=== PATIENT | male | born 1955 | race Caucasian/White ===

== ENCOUNTER 2019-11-13 02:38 | Observation (INO) | payer MEDICARE, SELFPAY ==
[2019-11-13] VITALS (19 sets, daily range): BP systolic 103–156; BP diastolic 48–69; PULSE 67–112; RESP 18–27; TEMP 36.5–38.3; O2SAT 90–99
--- NOTE | ~2019-11-13 | XR_ITS ---
EXAMINATION: XR chest 2V 11/13/2019 03:33 INDICATION: Shortness of breath PROCEDURE: 2 view chest COMPARISON: Comparison to multiple prior studies sequentially, with oldest reviewed study dated 05/2017. FINDINGS: The lungs are clear. The cardiomediastinal silhouette is within normal limits. There are no pleural effusions. There is no pneumothorax suspected. IMPRESSION: 1: NO ACUTE CARDIOPULMONARY DISEASE. Reviewed, dictated and finalized at location A. FINISHER
--- NOTE | 2019-11-13 02:40 | ED.ABDPAIN ---
HPI - Abdominal Pain General Chief Complaint: Abdominal Pain Stated Complaint: n/v malaise Time Seen by Provider: 11/13/19 02:40 Source: patient Mode of arrival: EMS Limitations: no limitations History of Present Illness HPI narrative: The pt is a 64 y/o male who presents to the ED, via EMS from [facility], with c/o nausea and vomiting that began tonight. Per EMS, the nurses called EMS because the pt was vomiting and just wasn't himself . The pt is normally A&O x1 due to a PMHx of a CVA. The pt is DNR. Per EMS personnel, O2 was administered en route to the ED. A complete HPI was limited due to the pt's clinical condition. MD elicited complaint: other (nausea and vomiting) Onset (ago): hour(s) (tonight) Associated symptoms: other (none) Related Data Home Medications Medication Instructions Recorded Confirmed amlodipine 5 mg tablet 10 mg PO DAILY 09/01/19 10/12/19 baclofen 10 mg tablet 10 mg PO DAILY 09/01/19 10/12/19 gabapentin 300 mg capsule 300 mg PO DAILY 09/01/19 10/12/19 lisinopril 40 mg PO DAILY 09/01/19 10/12/19 sertraline 100 mg tablet 100 mg PO DAILY 09/01/19 10/12/19 tamsulosin 0.4 mg capsule 0.4 mg PO DAILY 09/01/19 10/12/19 triamterene 37.5 1 tablet PO QAM 09/01/19 10/12/19 mg-hydrochlorothiazide 25 mg tablet Allergies Allergy/AdvReac Type Severity Reaction Status Date / Time No Known Allergies Allergy Unverified 11/13/19 04:56 Review of Systems Review of Systems: All systems reviewed & are unremarkable except as noted in HPI and below Gastrointestinal: Gastrointestinal: Reports nausea and Reports vomiting [facility] Past Medical History Medical History BPH (benign prostatic hyperplasia) Chronic venous stasis dermatitis Depression Dysarthria Essential hypertension Hemiparesis of right dominant side as late effect of cerebral infarction Left MCA stroke in 1999 Peripheral neuropathy Peripheral vascular disease Subdural hematoma February 2018 Surgical History Surgical History Femoral artery stenosis, right Status post right from femoral stent Family History Family History Other Unknown family medical history Social History Social History Social History: The patient is and lives alone. He has smoked a pack per day for 45 years. He had denied alcohol use in the past but multiple small bottles of wine were found at his house. Code status: Full code per EMR; his son Frank is his durable power of energy attorney. Primary care physician: Dr. Eugenio Olivo Smoking packs per day: 1 Smoking cigarettes per day: 20.0 Years smoked: 45 Smoking pack-years: 45.00 Smoking status: Current every day smoker Tobacco type: cigarettes Second hand tobacco smoke exposure: Yes Alcohol intake: current Substance use: unknown Substance use type: unknown Additional occupation/education comments: [employer] Gender identity (if verbalized by the patient): Male Spiritual care concerns: No Agree to blood products: Yes Exam Const: General: ill appearing and other (elderly) HENMT: Mouth: Yes lip normal and Yes moist mucous membranes Eyes: Conjunctivae: conjunctivae normal Pupils: Equal, round and reactive pupils present Resp: Effort & Inspection: normal respiratory effort Auscultation: rhonchi Cardio: Rate: tachycardic Rhythm: regular rhythm GI: GI Palp: Yes Soft to palpation and No Tenderness to palpation present (GI) Auscultation: normal bowel sounds Back/Spine/Pelvis: Back: other (full ROM) Skin: General skin exam: normal color, dry skin and other (warm) Neuro: Other: oriented x1 Extrem: General: full ROM Course Vital Signs Vital signs: Vital Signs Temperature 37.6 C 11/13/19 02:38 Pulse Rate 111 H 11/13/19
[2019-11-13] MEDS: ALBUTEROL SULFATE NEB 2.5 MG/0.5 ML INH 5 MG INHALATION ×4 (02:57→21:49)
[2019-11-13] MEDS: SODIUM CHLORIDE 0.9% IV 1,000 ML 999 ML IV CONT ×2 (03:23→05:07)
[2019-11-13 03:38] LABS: Basophils Percent Auto 0.3 % (0.2-1.2); Eosinophils Percent Auto 0.3 % (0-4.4); Hematocrit 43.7 % (42.0-52.0); Hemoglobin 14.5 g/dL (14.0-18.0); Immature Granulocyte Absolute 0.02 K/mm3 (0.00-0.031); Immature Granulocyte Percent A 0.3 % (0-0.5); Lymphocytes Absolute Auto 0.29 K/mm3 (0.9-3.2); Lymphocytes Percent Auto 4.4 % (18.3-44.2); Mean Corpuscular HGB Conc 33.2 g/dl (32-36); Mean Corpuscular Hemoglobin 28.7 pg (26-34); Mean Corpuscular Volume 86.5 fl (80-100); Mean Platelet Volume 11.9 fl (7.4-10.4); Monocytes Absolute Auto 0.6 K/mm3 (0.1-0.6); Monocytes Percent Auto 9.5 % (2.6-8.5); Neutrophils Absolute Auto 5.6 K/mm3 (1.3-6.7); Neutrophils Percent Auto 85.2 % (45.5-73.1); Platelet Count Result 104 k/mm3 (150-375); Red Blood Count 5.05 M/mm3 (4.6-6.20); Red Cell Distribution Width 13.8 % (11.5-14.5); White Blood Count 6.5 K/mm3 (4.5-10.0)
[2019-11-13 03:39] LABS: Lactic Acid Reflex 0.9 mmol/L (0.7-2.1)
[2019-11-13 03:40] LABS: INR 1.2; Prothrombin Time 14.6 Seconds (11.1-14.7)
[2019-11-13 03:41] LABS: Partial Thromboplastin Time 27.2 SECONDS (22.3-36.8)
[2019-11-13 03:52] LABS: Alanine Aminotransferase 16 U/L (4-50); Albumin Level 3.6 g/dL (3.5-5.1); Alkaline Phosphatase 72 U/L (38-126); Aspartate Amino Transferase 19 U/L (17-59); Bilirubin,Total 0.8 mg/dL (0.2-1.3); Blood Urea Nitrogen 23 mg/dL (9-20); Calcium 8.7 mg/dL (8.4-10.2); Carbon Dioxide 24 mmol/L (22-30); Chloride 102 mmol/L (98-107); Estimated Glomerular Filt Rate > 60; Glucose 129 mg/dL (75-110); Potassium 3.9 mmol/L (3.4-5.0); Sodium 135 mmol/L (137-145)
[2019-11-13 04:02] LABS: Add Urine Microscopic? NO; Appearance Urine Clear (Clear); Bilirubin Urine Negative (Negative); Blood Urine Negative (Negative); Color Urine Yellow (Yellow); Glucose Urine UA Negative (Negative); Ketones Urine Negative (Negative); Leukocyte Esterase Ur Negative LEU/UL (Negative); Nitrate Urine Negative (Negative); Protein Urine Negative (Negative); Specific Grav Ur 1.017 (1.001-1.035); Urobilinogen Urine Negative mg/dL (<2.0)
[2019-11-13 04:04] LABS: CRP 1.6 mg/dL (<1.0)
--- NOTE | 2019-11-13 07:35 | ADMGEN ---
This patient, Ricardo Covington, was admitted to [facility] Surg Room [id number]. Patient/family oriented to hospital policies and general routines including ID bracelet, bed and alarms, visiting hours, pain management, procedures, bathroom and other care routines, personal items, smoking policy, room service/diet, and visiting hours. Valuables list has been completed. Information on how to activate the Rapid Response Team has been discussed. Patient/Family are encouraged to report perceived risks to care and to ask questions if they do not understand what they are told or what they should do.
[2019-11-13] MEDS: LACTATED RINGERS 1,000 ML 125 ML IV CONT (09:04)
[2019-11-13] MEDS: OSELTAMIVIR PHOSPHATE 75 MG CAP PO (09:05)
--- NOTE | 2019-11-13 12:09 | PM.IMHP ---
H&P: HPI History of Present Illness Chief complaint: nausea and vomiting Narrative: Date of Service 11/13/19 This supervising physician for this history and physical is Dr. Julia Mckeon. Mr. Covington is a 64yo M with past medical history of left sided stroke in 1999 with residual right-sided hemiplegia, subdural hematoma February 2018, and chronic venous stasis dermatitis who presented to the ED from [facility], reportedly because he was vomiting and not acting himself . He is known to the hospitalist service having recently just been discharged about 1 month ago due to altered mental status. He is known to be typically oriented to self with expressive aphasia. He is not able to communicate why he was brought in to the ED, but EMS reported vomiting. He is able to speak in 1 word phrases and answers to yes or no questions. He tells me he feels short of breath but is not having any chest pain. Nursing has not noted any further vomiting this morning. He denies any abdominal pain or nausea at time of my exam. Influenza A positive in the ED. He is admitted to observation evaluation vomiting and management of influenza A. Much of this history is obtained from the EMR from his recent admission, as he is not able to communicate much and there is no family at the bedside. Review of Systems Review of Systems: Narrative: Review of systems is limited somewhat unreliable due to his inability to communicate very well. [facility], LAT[facility] Past Medical History Medical History BPH (benign prostatic hyperplasia) Chronic venous stasis dermatitis Depression Dysarthria Essential hypertension Hemiparesis of right dominant side as late effect of cerebral infarction Left MCA stroke in 1999 Peripheral neuropathy Peripheral vascular disease Subdural hematoma February 2018 Surgical History Surgical History Femoral artery stenosis, right Status post right from femoral stent Family History Family History Other Unknown family medical history Social History Social History (Updated 11/13/19 @ 12:23 by Francine Sandhu PA-C) Social History: The patient is and lives at [facility]. He has smoked a pack per day for 45 years. Questionable history of alcohol use noted in chart. Code status: Do not resuscitate paperwork accompanies him from [facility] from 10/24/19; his son Frank is his durable power of cover seamer. Primary care physician: Dr. 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5 1 tablet PO QAM 09/01/19 11/13/19 History mg-hydrochlorothiazide 25 mg tablet aspirin 325 mg PO DAILY #30 tablet 09/03/19 11/13/19 Rx hydralazine 50 mg PO QID 30 Days #240 tablet 10/17/19 11/13/19 Rx potassium chloride [K-Tab] 40 meq PO NESTOR
[2019-11-14] VITALS (12 sets, daily range): BP systolic 105–129; BP diastolic 52–93; PULSE 74–118; RESP 18–20; TEMP 36.2–36.9; O2SAT 92–100
[2019-11-14] MEDS: AMLODIPINE BESYLATE 5 MG TABLET 10 MG PO ×2 (00:37→20:18)
[2019-11-14] MEDS: hydrALAZINE HCL 50 MG TABLET PO ×5 (00:37→20:19)
[2019-11-14] MEDS: OSELTAMIVIR PHOSPHATE 75 MG CAP PO ×3 (00:38→20:19)
[2019-11-14] MEDS: SERTRALINE HCL 50 MG TABLET 100 MG PO ×2 (00:38→20:19)
[2019-11-14] MEDS: TAMSULOSIN HCL 0.4 MG CAPSULE PO ×2 (00:38→20:18)
[2019-11-14] MEDS: ALBUTEROL SULFATE NEB 2.5 MG/0.5 ML INH 5 MG INHALATION ×4 (01:07→22:20)
[2019-11-14 07:17] LABS: Blood Urea Nitrogen 14 mg/dL (9-20); Calcium 8.6 mg/dL (8.4-10.2); Carbon Dioxide 27 mmol/L (22-30); Chloride 99 mmol/L (98-107); Estimated Glomerular Filt Rate > 60; Glucose 108 mg/dL (75-110); Potassium 3.6 mmol/L (3.4-5.0); Sodium 134 mmol/L (137-145)
[2019-11-14] MEDS: allopurinoL 300 MG TABLET PO (10:06)
[2019-11-14] MEDS: BACLOFEN 10 MG TABLET PO (10:07)
[2019-11-14] MEDS: GABAPENTIN 300 MG CAPSULE PO (10:07)
[2019-11-14] MEDS: lisinopriL 20 MG TABLET 40 MG PO (10:08)
[2019-11-14] MEDS: POTASSIUM CHLORIDE 20 MEQ TABLET.ER 40 MEQ PO (10:09)
[2019-11-14] MEDS: ASPIRIN 325 MG TABLET PO (10:09)
[2019-11-14] MEDS: TRIAMTERENE 37.5 MG/HCTZ 25 MG (MAXZIDE) TABLET 1 TAB PO (10:10)
--- NOTE | 2019-11-14 10:37 | PCPTNOTE ---
Attempted to see patient for PT evaluation. Pt refuses to participate at this time. Will try again this afternoon.
--- NOTE | 2019-11-14 10:37 | PCOTNOTE ---
OT evaluation attempted this AM. Pt unwilling to participate in therapy at this time. Will attempt OT evaluation at later time.
--- NOTE | 2019-11-14 15:35 | PM.IMPN ---
Progress Note: A&P Assessment and Plan (1) Influenza A: Code(s): J10.1 - Influenza due to other identified influenza virus with other respiratory manifestations Status: Acute Assessment and Plan: Influenza A positive in the ED. Started on Tamiflu. Albuterol nebs. PT/OT neena appreciated for discharge planning. Comes from [facility] and needs authorization to return. Medically stable for discharge, just waiting on insurance authorization. (2) Sepsis: Qualifiers: Sepsis acute organ dysfunction status: without acute organ dysfunction Sepsis type: sepsis due to unspecified organism Qualified Code(s): A41.9 - Sepsis, unspecified organism Code(s): A41.9 - Sepsis, unspecified organism Status: Acute Assessment and Plan: Met criteria on arrival with tachycardia, tachypnea; suspected source influenza. Monitor vital signs in urine output. Blood cultures pending with no growth to date. (3) Essential hypertension: Code(s): I10 - Essential (primary) hypertension Status: Acute Assessment and Plan: Resume home antihypertensives. BPs stable. (4) Hemiparesis of right dominant side as late effect of cerebral infarction: Code(s): I69.351 - Hemiplegia and hemiparesis following cerebral infarction affecting right dominant side Status: Chronic Assessment and Plan: History of MCA infarct 1999 and subdural hematoma February 2018. Stable, at his baseline. Continue ASA therapy. (5) Aphasia: Code(s): R47.01 - Aphasia Status: Acute Assessment and Plan: Chronic secondary to old stroke. At his baseline and actually a little more talkative today. (6) DVT prophylaxis: Code(s): Z29.9 - Encounter for prophylactic measures, unspecified Status: Acute Assessment and Plan: SCDs Subjective Date/time seen: 11/14/19 1500 Interval history: Mr. Covington is a 64yo M admitted with influenza. He is a little more talkative today. He denies being in any pain. Review of systems is limited based on his aphasia and difficulty communicating. Exam Narrative: Exam Narrative: General: Male resting sitting up in bedside chair in no acute distress. HEENT: Normocephalic, EOMI, oral mucosa tacky. Neck: Supple. Chest: Faint bibasilar rhonchi. Tolerating room air. Heart: Heart rate and rhythm regular with S1-S2. Abdomen: Soft, nontender, nondistended, bowel sounds present. Skin: Dry skin lower extremities bilaterally, chronic stasis dermatitis. Extremities: Peripheral pulses intact. Right-sided hemiplegia. Chronic stasis dermatitis to bilateral lower legs. Neurologic: Awake and alert. Expressive aphasia noted. Able to answer yes or no questions and short phrases. Right-sided hemiplegia. Appears to be at his baseline cognitively based on review of other records. Objective Data Vital Signs Vital Signs: Laboratory Tests 11/13/19 03:16 11/14/19 06:18 11/14/19 06:18 Sodium 134 L Potassium 3.6 Chloride 99 Carbon Dioxide 27 BUN 14 D Creatinine 0.90 Estim Creat Clear Calc Not Reportable Estimated GFR > 60 Glucose 108 Calcium 8.6 Microbiology 11/13/19 03:16 Blood Blood Culture - Preliminary 11/13/19 03:16 Blood Blood Culture - Preliminary Intake/Output Intake/Output: Intake & Output 11/11/19 11/12/19 11/13/19 11/14/19 23:59 23:59 23:59 23:59 Intake Total 2470 730 Output Total 100 Balance 2370 730 Meds/Results Medications: Active Medications Generic Name Dose Route Start Last Admin Trade Name Freq PRN Reason Stop Dose Admin Acetaminophen 650 mg 11/14/19 08:03 Tylenol Tablet PO Q4H PRN Mild Pain (1-3) or Fever Albuterol 5 mg 11/13/19 08:00 11/14/19 14:25 Albuterol Sulf Neb 2.5mg
[2019-11-15 03:21] VITALS: PULSE 76; RESP 20
[2019-11-15] MEDS: ALBUTEROL SULFATE NEB 2.5 MG/0.5 ML INH 5 MG INHALATION ×2 (03:21→09:22)
[2019-11-15 03:26] VITALS: PULSE 79; RESP 20
[2019-11-15 06:00] VITALS: BP 134/88; PULSE 78; RESP 20; TEMP 36.8; O2SAT 96
[2019-11-15 06:19] LABS: Potassium 3.6 mmol/L (3.4-5.0)
[2019-11-15] MEDS: HALOPERIDOL LACTATE 5 MG/ML VIAL 2.5 MG IM (08:46)
[2019-11-15 09:22] VITALS: PULSE 74; RESP 20
[2019-11-15 09:31] VITALS: PULSE 76; RESP 20
[2019-11-15] MEDS: OSELTAMIVIR PHOSPHATE 75 MG CAP PO (10:45)
[2019-11-15] MEDS: POTASSIUM CHLORIDE 20 MEQ TABLET.ER 40 MEQ PO (10:45)
[2019-11-15] MEDS: lisinopriL 20 MG TABLET 40 MG PO (10:46)
[2019-11-15] MEDS: BACLOFEN 10 MG TABLET PO (10:46)
[2019-11-15] MEDS: TRIAMTERENE 37.5 MG/HCTZ 25 MG (MAXZIDE) TABLET 1 TAB PO (10:47)
[2019-11-15] MEDS: allopurinoL 300 MG TABLET PO (10:47)
[2019-11-15] MEDS: ASPIRIN 325 MG TABLET PO (10:47)
[2019-11-15] MEDS: hydrALAZINE HCL 50 MG TABLET PO (10:47)
[2019-11-15] MEDS: GABAPENTIN 300 MG CAPSULE PO (10:48)
--- NOTE | 2019-11-15 11:31 | PM.DS ---
DS: Diagnosis Admitting Diagnosis Admitting Diagnosis: Influenza due to other identified influenza virus with other respiratory manifestations Discharge Diagnosis (1) Influenza A: Code(s): J10.1 - Influenza due to other identified influenza virus with other respiratory manifestations Status: Acute Assessment and Plan: ------Influenza A positive in the ED. Finished Tamiflu. Albuterol inahler given at discharge. (2) Sepsis: Qualifiers: Sepsis acute organ dysfunction status: without acute organ dysfunction Sepsis type: sepsis due to unspecified organism Qualified Code(s): A41.9 - Sepsis, unspecified organism Code(s): A41.9 - Sepsis, unspecified organism Status: Acute Assessment and Plan: ------Met criteria on arrival with tachycardia, tachypnea; suspected source influenza. Blood cultures no growth per date. (3) Essential hypertension: Code(s): I10 - Essential (primary) hypertension Status: Acute Assessment and Plan: ------ bp 134/88 at discharge (4) Hemiparesis of right dominant side as late effect of cerebral infarction: Code(s): I69.351 - Hemiplegia and hemiparesis following cerebral infarction affecting right dominant side Status: Chronic Assessment and Plan: -------History of MCA infarct 1999 and subdural hematoma February 2018. Stable, at his baseline. Continue ASA therapy. (5) Aphasia: Code(s): R47.01 - Aphasia Status: Acute Assessment and Plan: -----Chronic secondary to old stroke. At his baseline and actually a little more talkative today. (6) DVT prophylaxis: Code(s): Z29.9 - Encounter for prophylactic measures, unspecified Status: Acute DS: Summary Hospital Course Reason for hospitalization: Influenza Hospital Course: Patient is a 64-year-old male who presented emergency room with complaints of nausea, vomiting and altered mental status according to the facility. Temperature 37.6?, pulse 111, respiratory rate 27, blood pressure 127/69, pulse ox 93 on room air. White blood cell count 6.5, hemoglobin 14.5, hematocrit 43.7, platelets 104. BMP within normal limits with the exception sodium 135, BUN 23, glucose 129. Influenza screen positive for influenza A. Chest x-ray showed no acute cardio pulmonary disease. Patient was admitted to the hospitalist service and started on Tamiflu and conservative treatment. The patient improved with conservative treatment and had no complications. He is that his prior level of function and ready for discharge. The patient was educated about the worrisome signs and symptoms come back to emergency room for was discharged stable condition. Status at Discharge Overall status at discharge: patient is back to baseline Time Spent with Patient Time attestation: Total time spent providing and/or coordinating discharge services: 32 minutes Time spent: Greater than 30 minutes Exam Narrative: Exam Narrative: General: Well developed well nourished patient resting in the chair in no acute distress HEENT: normocephalic Neck: supple Neuro: Alert and oriented to baseline. He has chronic excessive aphasia with right-sided hemiplegia CV:RRR Resp:CTA Abd: Soft, non distended. No pain to palpation. Positive bowel sounds Extremities: right sided hemiplegia. Chronic stasis dermatitis to LE DS: Data Data Completed and Pending Labs on day of discharge: Labs from last 24 hours 11/15/19 05:50 Potassium 3.6 Preliminary micro results at discharge 11/13/19 03:16 Blood Culture - Preliminary Blood 11/13/19 03:16 Blood Culture - Preliminary Blood Discharge Plan Discharge Attending physician on discharge: Anastasia Ho Consulting providers: Francine Sandhu ; Pamela Luis ; Adrián Harrison Discharging Clinician: Pamela Luis Patient Disposition: SNF Activity: as tolerated Diet: regular Discha
--- NOTE | 2019-11-15 11:38 | PC.NURSE ---
Pt heard screaming angrily from three rooms away. When I entered the room, I asked Don if I could help him in anyway and he said no. I offered to get him some tea (his favorite drink that usually makes him happy), but he refused. I asked Don if he would take his medicine so that I could give him some PO haldol for his agitation. He refused, raised his middle finger to me and said, F*ck you . I opted to give IM haldol to help with pt agitation.
--- NOTE | 2019-11-25 13:28 | PC.NURSE ---
Blood cx is negative.
== END 2019-11-15 12:55 ==
LOC: ANHED 03:36 → ANH3MEDSUR 05:09
PROVIDERS: Physician Assistant; Admitting Provider Family Medicine; Emergency Provider Emergency Medicine; PCP Family Medicine; Visit Provider Physician Assistant
DX: A41.9 Sepsis, unspecified organism (principal); J10.1 Influenza due to other identified influenza virus with other respiratory manifestations; I10 Essential (primary) hypertension; I69.351 Hemiplegia and hemiparesis following cerebral infarction affecting right dominant side; I69.320 Aphasia following cerebral infarction; I87.2 Venous insufficiency (chronic) (peripheral); I73.9 Peripheral vascular disease, unspecified; G62.9 Polyneuropathy, unspecified; F32.9 Major depressive disorder, single episode, unspecified; N40.0 Benign prostatic hyperplasia without lower urinary tract symptoms; Z66 Do not resuscitate; Z79.82 Long term (current) use of aspirin; Z79.899 Other long term (current) drug therapy; Z86.79 Personal history of other diseases of the circulatory system; Z95.828 Presence of other vascular implants and grafts
CPT/HCPCS: 36415; 51701; 71046; 80048; 80053; 81003; 83605; 84132; 85025; 85055; 85610; 85730; 86140; 87040; 87081; 87804; 94640; 96360; 96372; 97110; 97162; 97166; 97530; 99285; A9270; G0378; J1630; J7030; J7120

== ENCOUNTER 2019-11-28 07:41 | Emergency (ER) | payer MEDICARE, SELFPAY ==
--- NOTE | ~2019-11-28 | XR_ITS ---
EXAMINATION: XR chest 1V portable DATE: 11/28/2019 11:39 INDICATION: Shortness of breath TECHNIQUE: frontal view of the chest was obtained. COMPARISON: Chest radiograph dated 11/13/2019 FINDINGS: Mild eventration along the right hemidiaphragm. Lungs remain clear with no focal airspace opacities, pulmonary edema, pleural effusion or pneumothorax. The cardiomediastinal silhouette is normal. IMPRESSION: 1. No acute cardiopulmonary disease. Reviewed, dictated and finalized at location A. R CRANE OPERATOR
[2019-11-28 07:41] VITALS: BP 116/53; PULSE 89; RESP 14; TEMP 36.4; O2SAT 96
--- NOTE | 2019-11-28 07:44 | ECG_ITS ---
Measurements Intervals [place] Rate: 90 P: 7 NV: 164 QRS: -34 QRSD: 88 T: 46 QT: 355 QTc: 436 Interpretive Statements SINUS RHYTHM LEFT AXIS DEVIATION DELAYED PRECORDIAL R/S TRANSITION BORDERLINE ECG Electronically Signed On 11-28-2019 8:18:11 BUSINESS AREA DIRECTOR by Laureano Espinosa D.O.
--- NOTE | 2019-11-28 07:46 | PC.NURSE ---
Expressive aphasia from previous CVA. Patient reported oriented to norms. He is able to answer yes/no questions.
[2019-11-28 08:24] LABS: Basophils Percent Auto 0.3 % (0.2-1.2); Eosinophils Absolute Auto 0.2 K/mm3 (0-0.3); Eosinophils Percent Auto 2.5 % (0-4.4); Hematocrit 43.7 % (42.0-52.0); Hemoglobin 14.6 g/dL (14.0-18.0); Immature Granulocyte Absolute 0.01 K/mm3 (0.00-0.031); Immature Granulocyte Percent A 0.2 % (0-0.5); Lymphocytes Absolute Auto 1.34 K/mm3 (0.9-3.2); Lymphocytes Percent Auto 21.9 % (18.3-44.2); Mean Corpuscular HGB Conc 33.4 g/dl (32-36); Mean Corpuscular Hemoglobin 28.9 pg (26-34); Mean Corpuscular Volume 86.5 fl (80-100); Mean Platelet Volume 12.2 fl (7.4-10.4); Monocytes Absolute Auto 0.6 K/mm3 (0.1-0.6); Neutrophils Percent Auto 65.1 % (45.5-73.1); Platelet Count Result 142 k/mm3 (150-375); Red Blood Count 5.05 M/mm3 (4.6-6.20); Red Cell Distribution Width 14.5 % (11.5-14.5); White Blood Count 6.1 K/mm3 (4.5-10.0)
[2019-11-28 08:34] LABS: Prothrombin Time 13.2 Seconds (11.1-14.7)
[2019-11-28 08:37] LABS: Alanine Aminotransferase 26 U/L (4-50); Albumin Level 3.8 g/dL (3.5-5.1); Alkaline Phosphatase 83 U/L (38-126); Aspartate Amino Transferase 23 U/L (17-59); Bilirubin,Total 0.9 mg/dL (0.2-1.3); Blood Urea Nitrogen 28 mg/dL (9-20); Calcium 9.6 mg/dL (8.4-10.2); Carbon Dioxide 23 mmol/L (22-30); Chloride 102 mmol/L (98-107); Estimated CRCL calculation 63 ml/min; Estimated Glomerular Filt Rate 55; Glucose 131 mg/dL (75-110); Potassium 4.9 mmol/L (3.4-5.0); Sodium 138 mmol/L (137-145)
[2019-11-28 08:48] LABS: Troponin I < 0.012 ng/mL (0.000-0.034)
[2019-11-28 08:54] VITALS: BP 101/54; PULSE 77; RESP 17; TEMP 36.2; O2SAT 97
[2019-11-28 08:55] VITALS: PULSE 82
--- NOTE | 2019-11-28 12:14 | ED.GENADULT ---
HPI - General Adult General Chief complaint: Weakness Stated complaint: weakness Time Seen by Provider: 11/28/19 07:44 Source: EMS and RN notes reviewed Mode of arrival: EMS Limitations: clinical condition History of Present Illness HPI narrative: 64-year-old with a history of expressive aphasia was sent from a long-term with complaints of weakness since this morning. Patient was found to have low blood pressure. As per the long-term record patient was recently diagnosed with pneumonia. However there was no history of fever or chills. Denies any nausea or vomiting or abdominal pain or diarrhea at this time. Related Data Home Medications Medication Instructions Recorded Confirmed amlodipine 5 mg tablet 10 mg PO HS 09/01/19 11/13/19 baclofen 10 mg tablet 10 mg PO DAILY 09/01/19 11/13/19 gabapentin 300 mg capsule 300 mg PO DAILY 09/01/19 11/13/19 lisinopril 40 mg PO DAILY 09/01/19 11/13/19 sertraline 100 mg tablet 100 mg PO HS 09/01/19 11/13/19 tamsulosin 0.4 mg capsule 0.4 mg PO HS 09/01/19 11/13/19 triamterene 37.5 1 tablet PO QAM 09/01/19 11/13/19 mg-hydrochlorothiazide 25 mg tablet Aloe [place] Antifungal (micon) 1 applic TOPICAL BID 11/13/19 11/13/19 allopurinol 300 mg PO DAILY 11/13/19 11/13/19 haloperidol 2.5 mg PO Q6-8H PRN 11/13/19 11/13/19 haloperidol lactate [Haldol] 2.5 mg IM Q6-8H PRN 11/13/19 11/13/19 nicotine [Nicoderm CQ] 1 patch TRANSDERMAL HS 11/13/19 11/13/19 budesonide [Pulmicort] 11/28/19 ipratropium-albuterol ml INHALATION 11/28/19 Allergies Allergy/AdvReac Type Severity Reaction Status Date / Time No Known Allergies Allergy Verified 11/13/19 07:44 Review of Systems Review of Systems: All systems reviewed & are unremarkable except as noted in HPI and below Constitutional: Constitutional: Reports no additional constitutional complaints Eyes: Eyes: Reports no additional eye complaints ENT: Reports system reviewed and no additional complaints, except as documented Cardiovascular: Cardiovascular: Reports no additional cardiovascular complaints Respiratory: Respiratory: Reports no additional respiratory complaints Gastrointestinal: Gastrointestinal: Reports no additional gastrointestinal complaints Musculoskeletal: Musculoskeletal: Reports no additional musculoskeletal complaints Neurologic: Reports system reviewed and no additional complaints, except as documented [facility]LY [facility] Past Medical History Medical History BPH (benign prostatic hyperplasia) Chronic venous stasis dermatitis Depression Dysarthria Essential hypertension Hemiparesis of right dominant side as late effect of cerebral infarction Left MCA stroke in 1999 Peripheral neuropathy Peripheral vascular disease Subdural hematoma February 2018 Social History Social History (Updated 11/13/19 @ 12:23 by Francine Sandhu PA-C) Social History: The patient is and lives at [facility]. He has smoked a pack per day for 45 years. Questionable history of alcohol use noted in chart. Code status: Do not resuscitate paperwork accompanies him from long-term from 10/24/19; his son Frank is his durable power of transactional attorney. Primary care physician: Dr. 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 I discuss
--- NOTE | 2019-11-28 12:43 | PC.NURSE ---
Called [facility] to transport pt back to the [facility]. Trip# [id number]. [id number] [id number]
[2019-11-28 13:03] VITALS: BP 119/55; PULSE 74; RESP 16; O2SAT 98
== END 2019-11-28 13:03 ==
PROVIDERS: Emergency Provider Family Medicine; PCP Family Medicine
DX: R53.1 Weakness (principal); F17.210 Nicotine dependence, cigarettes, uncomplicated; N40.0 Benign prostatic hyperplasia without lower urinary tract symptoms; F32.9 Major depressive disorder, single episode, unspecified; I10 Essential (primary) hypertension; I69.351 Hemiplegia and hemiparesis following cerebral infarction affecting right dominant side; G62.9 Polyneuropathy, unspecified; R94.31 Abnormal electrocardiogram [ECG] [EKG]; Z66 Do not resuscitate
CPT/HCPCS: 36415; 71045; 80053; 84484; 85025; 85610; 93005; 99284

== ENCOUNTER 2019-12-01 12:55 | Emergency (ER) | payer MEDICARE, SELFPAY ==
[2019-12-01] VITALS (9 sets, daily range): BP systolic 127–141; BP diastolic 59–78; PULSE 65–83; RESP 13–20; TEMP 36.8; O2SAT 96–98
--- NOTE | ~2019-12-01 | CT_ITS ---
EXAMINATION: CT brain wo con DATE: 12/01/2019 13:31 INDICATION: Syncope. TECHNIQUE: Computed tomography (CT) of the head was performed without intravenous contrast. The mA wa s adjusted according to patient size. Iterative reconstruction technique was employed. The dose-lengt h product was 605.33 mGy-cm. COMPARISON: Head CT 10/12/2019 FINDINGS: There is chronic encephalomalacia involving the left frontal lobe, left insula, left basal ganglia, and left temporal lobe in the expected distribution of left middle cerebral artery. There ar e areas of cystic encephalomalacia in the right frontoparietal deep white matter. There is an old lac unar infarct in the right lentiform nucleus. There are small old infarcts in the right frontal, tempo ral, and parietal lobes. There is no intracranial hemorrhage, acute infarction, or abnormal intracran ial mass lesion. Left cerebral peduncle is small, consistent with chronic Wallerian degeneration. The re is ex vacuo dilatation of left lateral ventricle. The orbits are normal. There is a mucous retenti on cyst in right maxillary sinus. The mastoid air cells are normal. There are changes of left-sided c raniotomy. IMPRESSION: 1. Old infarcts in the brain bilaterally. Reviewed, dictated and finalized at location A. MOLDER
--- NOTE | 2019-12-01 13:05 | ED.AMS ---
HPI - Altered Mental Status General Chief Complaint: Altered Mental Status Stated Complaint: AMS/SYNCOPAL EPISODE Time Seen by Provider: 12/01/19 13:04 Source: patient and RN notes reviewed Mode of arrival: EMS Limitations: other (aphasia) History of Present Illness HPI narrative: Pt is a 64 y/o male who presents to the ED, via EMS from [facility], with c/o AMS that began earlier this morning. Patient was evaluated in ED 3 days ago. Pt was evaluated for weakness. Pt was at the care facility and the pt might have had a syncopal episode per EMS and staff at the facility. Patient denies being in any pain. Pt takes ASA 324 mg daily. HPI is limited due to pt's aphasia. MD complaint: altered mental status Onset (ago): hour(s) Consistency of symptoms: constant Associated symptoms: denies other symptoms (limited due to pt's aphasia) Related Data Home Medications Medication Instructions Recorded Confirmed amlodipine 5 mg tablet 10 mg PO HS 09/01/19 11/13/19 baclofen 10 mg tablet 10 mg PO DAILY 09/01/19 11/13/19 gabapentin 300 mg capsule 300 mg PO DAILY 09/01/19 11/13/19 lisinopril 40 mg PO DAILY 09/01/19 11/13/19 sertraline 100 mg tablet 100 mg PO HS 09/01/19 11/13/19 tamsulosin 0.4 mg capsule 0.4 mg PO HS 09/01/19 11/13/19 triamterene 37.5 1 tablet PO QAM 09/01/19 11/13/19 mg-hydrochlorothiazide 25 mg tablet Aloe [place] Antifungal (micon) 1 applic TOPICAL BID 11/13/19 11/13/19 allopurinol 300 mg PO DAILY 11/13/19 11/13/19 haloperidol 2.5 mg PO Q6-8H PRN 11/13/19 11/13/19 haloperidol lactate [Haldol] 2.5 mg IM Q6-8H PRN 11/13/19 11/13/19 nicotine [Nicoderm CQ] 1 patch TRANSDERMAL HS 11/13/19 11/13/19 budesonide [Pulmicort] 11/28/19 ipratropium-albuterol ml INHALATION 11/28/19 Allergies Allergy/AdvReac Type Severity Reaction Status Date / Time No Known Allergies Allergy Verified 11/13/19 07:44 Review of Systems Review of Systems: ROS unobtainable: other (limited due to pt's aphasia) Neurologic: Reports other (AMS) [facility] Social History Social History (Updated 11/13/19 @ 12:23 by Francine Sandhu PA-C) Social History: The patient is and lives at [facility]. He has smoked a pack per day for 45 years. Questionable history of alcohol use noted in chart. Code status: Do not resuscitate paperwork accompanies him from senior living from 10/24/19; his son Frank is his durable power of regulatory attorney. Primary care physician: Dr. 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 Gender identity (if verbalized by the patient): Male Spiritual care concerns: No Agree to blood products: Yes Exam Const: General: awake HENMT: Head: normocephalic Ears: external ears normal General nose exam: Normal external nose present Eyes: General: appearance normal, both eyes and all related structures Conjunctivae: conjunctivae normal Neck: Neck: normal visual inspection and full ROM Chest: Chest palpation & inspection: normal inspection of the chest and no tenderness Resp: Effort & Inspection: normal respiratory effort Auscultation: clear to auscultation bilaterally Cardio: Rate: regular rate Rhythm: regular rhythm GI: GI Palp: No abdominal tenderness and Yes Soft to palpation Skin: General skin exam: normal color and turgor normal Neuro: General: other (awake) Cognition (Neuro): normal cognition Speech: aphasia Motor exam (neuro): Other motor observations present (right hemiparesis) Extrem: General: normal to inspection, full ROM and no pedal edema Psych: A
--- NOTE | 2019-12-01 13:08 | ECG_ITS ---
Measurements Intervals [place] Rate: 76 P: 35 [place]: 175 QRS: -34 QRSD: 93 T: 61 QT: 366 QTc: 413 Interpretive Statements SINUS RHYTHM ATRIAL PREMATURE COMPLEX LEFT AXIS DEVIATION BORDERLINE R WAVE PROGRESSION, ANTERIOR LEADS BASELINE ARTIFACT- I, II, AVR BORDERLINE ECG Electronically Signed On 12-01-2019 15:23:40 MANAGER by Laureano Espinosa D.O.
[2019-12-01 13:53] LABS: Basophils Percent Auto 0.4 % (0.2-1.2); Eosinophils Absolute Auto 0.2 K/mm3 (0-0.3); Eosinophils Percent Auto 2.1 % (0-4.4); Hematocrit 41.8 % (42.0-52.0); Hemoglobin 13.7 g/dL (14.0-18.0); Immature Granulocyte Absolute 0.04 K/mm3 (0.00-0.031); Immature Granulocyte Percent A 0.6 % (0-0.5); Lymphocytes Absolute Auto 1.22 K/mm3 (0.9-3.2); Lymphocytes Percent Auto 17.4 % (18.3-44.2); Mean Corpuscular HGB Conc 32.8 g/dl (32-36); Mean Corpuscular Hemoglobin 28.4 pg (26-34); Mean Corpuscular Volume 86.5 fl (80-100); Mean Platelet Volume 11.7 fl (7.4-10.4); Monocytes Absolute Auto 0.7 K/mm3 (0.1-0.6); Monocytes Percent Auto 10.1 % (2.6-8.5); Neutrophils Absolute Auto 4.9 K/mm3 (1.3-6.7); Neutrophils Percent Auto 69.4 % (45.5-73.1); Platelet Count Result 173 k/mm3 (150-375); Red Blood Count 4.83 M/mm3 (4.6-6.20); Red Cell Distribution Width 14.1 % (11.5-14.5)
[2019-12-01 14:06] LABS: Alanine Aminotransferase 24 U/L (4-50); Albumin Level 3.8 g/dL (3.5-5.1); Alkaline Phosphatase 81 U/L (38-126); Aspartate Amino Transferase 19 U/L (17-59); Bilirubin,Total 0.8 mg/dL (0.2-1.3); Blood Urea Nitrogen 28 mg/dL (9-20); Calcium 9.4 mg/dL (8.4-10.2); Carbon Dioxide 24 mmol/L (22-30); Chloride 101 mmol/L (98-107); Estimated Glomerular Filt Rate 55; Glucose 104 mg/dL (75-110); Potassium 4.3 mmol/L (3.4-5.0); Sodium 137 mmol/L (137-145)
--- NOTE | 2019-12-01 16:52 | PC.NURSE ---
Report to [facility] to transport pt back to [facility].
== END 2019-12-01 17:00 ==
PROVIDERS: Emergency Provider Emergency Medicine; PCP Family Medicine
DX: R41.82 Altered mental status, unspecified (principal); R55 Syncope and collapse; Z79.82 Long term (current) use of aspirin; Z66 Do not resuscitate; F17.210 Nicotine dependence, cigarettes, uncomplicated; I49.1 Atrial premature depolarization; R94.31 Abnormal electrocardiogram [ECG] [EKG]; N40.0 Benign prostatic hyperplasia without lower urinary tract symptoms; I10 Essential (primary) hypertension; I69.351 Hemiplegia and hemiparesis following cerebral infarction affecting right dominant side; I73.9 Peripheral vascular disease, unspecified; F32.9 Major depressive disorder, single episode, unspecified
CPT/HCPCS: 36415; 70450; 80053; 85025; 93005; 99284

== ENCOUNTER 2020-03-16 20:51 | Emergency (ER) | payer MEDICARE, SELFPAY ==
--- NOTE | ~2020-03-16 | XR_ITS ---
EXAMINATION: XR chest 1V portable DATE: 03/16/2020 23:26 INDICATION: Seizures. Transient alteration of awareness. TECHNIQUE: frontal view of the chest was obtained. COMPARISON: Chest radiograph dated 11/28/2019 FINDINGS: Again seen is mild eventration along the right hemidiaphragm. No focal airspace opacities, pulmonary edema, pleural effusion or pneumothorax. The cardiomediastinal silhouette is normal. IMPRESSION: 1. No acute cardiopulmonary disease. Reviewed, dictated and finalized at location A.
--- NOTE | ~2020-03-16 | CT_ITS ---
EXAMINATION: CT brain wo con DATE: 03/16/2020 23:26 INDICATION: Seizures TECHNIQUE: Computed tomography (CT) of the head was performed without intravenous contrast. Sagittal and coronal reconstructions were performed. The mA was adjusted according to patient size. Iterative reconstruction technique was employed. The dose-length product was 605.33 mGy-cm. COMPARISON: head CT dated 12/01/2019 FINDINGS: Evaluation severely limited by large amount artifact related to significant patient motion. Again see n is a large region of encephalomalacia involving the left frontal lobe, left insula and left tempora l lobe consistent with chronic infarct in the left middle cerebral artery vascular distribution. Dk tional small regions of encephalomalacia consistent with old infarcts previously seen in the right fr ontoparietal region and nearly obscured by the motion artifact. No evident acute intracranial hemorrh age, acute infarction or abnormal extra axial fluid collection. Unchanged expected dilation of the le ft lateral ventricle. No mass/mass effect. Mucous retention cyst in the right maxillary sinus. The or bits and mastoid air cells are normal. Intracranial calcified cerebral atherosclerosis is noted. IMPRESSION: 1. No evident acute intracranial process however evaluation is severely limited by large amount of pa tient motion artifact. 2. Chronic infarcts in the left and right cerebral hemispheres and left basal ganglia. Reviewed, dictated and finalized at location A. IMPRESSION: 1. No evident acute intracranial process however evaluation is severely limited by large amount of patient motion artifact. 2. Chronic infarcts in the left and right cerebral hemispheres and left basal g anglia.
[2020-03-16 20:51] VITALS: BP 162/101; PULSE 133; RESP 19; TEMP 36.8; O2SAT 93
--- NOTE | 2020-03-16 21:26 | PC.NURSE ---
This nurse spoke with Sherrill at 2120 who was the nurse at the facility,she states she witnessed two seizures. One being focal that lasted one minute and the other being a grand mal seizure lasting 45 seconds. She called EMS after witnessing the second seizure due to the Pt turning bright red with salvia. she states Pt has been refusing seizure meds for a few day now. Pt currently throws himself side to side in the bed, does not answer to his name. Pt is repeatedly saying unintelligible phrases. Seizure pads in place, bed placed in lowest position, curtains pulled back for viewing. Charge nurse aware.
[2020-03-16 21:56] VITALS: BP 143/101; PULSE 104; RESP 22; O2SAT 98
--- NOTE | 2020-03-16 22:33 | PC.NURSE ---
A 1:1 has been assigned to Pt due to him constantly placing left leg over the bed rail. Nursing facility also stated he throws himself out the bed and now has a low mattress to the floor.
--- NOTE | 2020-03-16 23:00 | PC.NURSE ---
Assumed care of pt at this time Report from [facility]
[2020-03-16] MEDS: SODIUM CHLORIDE 0.9% IV 1,000 ML 999 ML IV CONT (23:45)
[2020-03-16 23:49] LABS: Basophils Percent Auto 0.1 % (0.2-1.2); Eosinophils Percent Auto 0.2 % (0-4.4); Hematocrit 40.7 % (42.0-52.0); Hemoglobin 13.3 g/dL (14.0-18.0); Immature Granulocyte Absolute 0.02 K/mm3 (0.00-0.031); Immature Granulocyte Percent A 0.2 % (0-0.5); Immature Platelet Fraction Pct 4.4 % (0.9-11.2); Lymphocytes Absolute Auto 1.04 K/mm3 (0.9-3.2); Mean Corpuscular HGB Conc 32.7 g/dl (32-36); Mean Corpuscular Hemoglobin 29.4 pg (26-34); Mean Corpuscular Volume 89.8 fl (80-100); Mean Platelet Volume 11.2 fl (7.4-10.4); Monocytes Absolute Auto 0.6 K/mm3 (0.1-0.6); Monocytes Percent Auto 6.6 % (2.6-8.5); Neutrophils Absolute Auto 7.8 K/mm3 (1.3-6.7); Neutrophils Percent Auto 81.9 % (45.5-73.1); Platelet Count Result 125 k/mm3 (150-375); Red Blood Count 4.53 M/mm3 (4.6-6.20); Red Cell Distribution Width 15.1 % (11.5-14.5); White Blood Count 9.5 K/mm3 (4.5-10.0)
[2020-03-17 00:01] VITALS: BP 188/92; PULSE 62; RESP 15; O2SAT 95
[2020-03-17 00:02] LABS: Alanine Aminotransferase 12 U/L (4-50); Albumin Level 3.3 g/dL (3.5-5.1); Alkaline Phosphatase 73 U/L (38-126); Aspartate Amino Transferase 22 U/L (17-59); Bilirubin,Total 0.9 mg/dL (0.2-1.3); Blood Urea Nitrogen 14 mg/dL (9-20); Calcium 8.9 mg/dL (8.4-10.2); Carbon Dioxide 29 mmol/L (22-30); Chloride 104 mmol/L (98-107); Estimated Glomerular Filt Rate > 60; Glucose 124 mg/dL (75-110); Potassium 4.1 mmol/L (3.4-5.0); Sodium 137 mmol/L (137-145)
[2020-03-17 00:47] LABS: Add Urine Microscopic? YES; Appearance Urine Cloudy (Clear); Bacteria Urine Trace /hpf; Bilirubin Urine Negative (Negative); Blood Urine Negative (Negative); Color Urine Yellow (Yellow); Glucose Urine UA Negative (Negative); Ketones Urine Trace mg/dL (Negative); Leukocyte Esterase Ur 3+ LEU/UL (Negative); Mucus Urine Rare /lpf; Nitrate Urine Negative (Negative); Protein Urine 2+ mg/dL (Negative); RBC Urine 21-50 /hpf (0-2); Specific Grav Ur 1.015 (1.001-1.035); WBC Clumps Urine Present /HPF; WBC Urine >75 /hpf
--- NOTE | 2020-03-17 01:00 | ED.SEIZURE ---
HPI - Seizure General Chief Complaint: Seizure Stated Complaint: seizures Time Seen by Provider: 03/16/20 22:48 History of Present Illness HPI Narrative: Patient presents via EMS from the longterm for medical noncompliance and seizure activity. He has known seizures but does not want to take his medicine. He has a history of bilateral infarcts, and here only mumbles a few non-comprehensible words. complaint: seizure Witnessed: Yes - by Other (long-term staff) Related Data Home Medications Medication Instructions Recorded Confirmed amlodipine 5 mg tablet 10 mg PO HS 09/01/19 11/13/19 baclofen 10 mg tablet 10 mg PO DAILY 09/01/19 11/13/19 gabapentin 300 mg capsule 300 mg PO DAILY 09/01/19 11/13/19 lisinopril 40 mg PO DAILY 09/01/19 11/13/19 sertraline 100 mg tablet 100 mg PO HS 09/01/19 11/13/19 tamsulosin 0.4 mg capsule 0.4 mg PO HS 09/01/19 11/13/19 triamterene 37.5 1 tablet PO QAM 09/01/19 11/13/19 mg-hydrochlorothiazide 25 mg tablet Aloe Hammond Antifungal (micon) 1 applic TOPICAL BID 11/13/19 11/13/19 allopurinol 300 mg PO DAILY 11/13/19 11/13/19 haloperidol 2.5 mg PO Q6-8H PRN 11/13/19 11/13/19 haloperidol lactate [Haldol] 2.5 mg IM Q6-8H PRN 11/13/19 11/13/19 nicotine [Nicoderm CQ] 1 patch TRANSDERMAL HS 11/13/19 11/13/19 budesonide [Pulmicort] 11/28/19 ipratropium-albuterol ml INHALATION 11/28/19 Allergies Allergy/AdvReac Type Severity Reaction Status Date / Time No Known Allergies Allergy Verified 11/13/19 07:44 Review of Systems Review of Systems: Narrative: Unable to obtain a review of systems due to the patient's severe dementia. [facility] Past Medical History Medical History BPH (benign prostatic hyperplasia) Chronic venous stasis dermatitis Depression Dysarthria Essential hypertension Hemiparesis of right dominant side as late effect of cerebral infarction Left MCA stroke in 1999 Peripheral neuropathy Peripheral vascular disease Subdural hematoma February 2018 Surgical History Surgical History Femoral artery stenosis, right Status post right from femoral stent Social History Social History Social History: The patient is and lives at [facility]. He has smoked a pack per day for 45 years. Questionable history of alcohol use noted in chart. Code status: Do not resuscitate paperwork accompanies him from longterm from 10/24/19; his son Frank is his durable power of employment law attorney. Primary care physician: Dr. 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 EYES: PERRLA and EOMI. ENT: Nares clear, no rhinorrhea or epistaxis. Mucous membranes moist. NECK: Supple. CHEST: Clear to auscultation. No respiratory distress. HEART: Regular rate and rhythm. No murmur heard. Normal peripheral pulses. ABDOMEN: Soft, nontender, nondistended, normal active bowel sounds. EXTREMITIES: Normal range of motion. No edema. SKIN: Warm, dry, no rash. NEURO: No focal deficits. Initially sleeping PSYCH: Flat affect no eye contact. Course Consultations Consultation #1: I called his son and discussed the case, asking him whether he had considered p
[2020-03-17 01:41] VITALS: BP 180/66; PULSE 62; RESP 15; O2SAT 97
[2020-03-17 02:41] VITALS: BP 166/59; PULSE 71; RESP 15; O2SAT 98
--- NOTE | 2020-03-17 03:24 | PC.NURSE ---
0141 Called [facility] to transport patient. ETA [id number] [facility] called to update ETA to 0419
[2020-03-17 04:11] VITALS: BP 166/71; PULSE 65; RESP 15; O2SAT 99
== END 2020-03-17 04:29 ==
PROVIDERS: Emergency Provider Emergency Medicine; PCP Family Medicine
DX: G40.909 Epilepsy, unspecified, not intractable, without status epilepticus (principal); N39.0 Urinary tract infection, site not specified; R00.0 Tachycardia, unspecified; N40.0 Benign prostatic hyperplasia without lower urinary tract symptoms; F32.9 Major depressive disorder, single episode, unspecified; I10 Essential (primary) hypertension; I69.951 Hemiplegia and hemiparesis following unspecified cerebrovascular disease affecting right dominant side; I73.9 Peripheral vascular disease, unspecified; G62.9 Polyneuropathy, unspecified; F17.210 Nicotine dependence, cigarettes, uncomplicated; Z66 Do not resuscitate
CPT/HCPCS: 36415; 70450; 71045; 80053; 81001; 85025; 85055; 87077; 87086; 87088; 87186; 96361; 96365; 99284; J0696; J7030

== ENCOUNTER 2020-03-20 19:28 | Observation (INO) | payer MEDICARE, SELFPAY ==
--- NOTE | ~2020-03-20 | XR_ITS ---
EXAMINATION: XR chest 1V portable EXAM DATE: 03/20/2020 20:53 INDICATION: Seizure and TECHNIQUE: Portable AP frontal chest x-ray was obtained. Comparison is made to prior examination from 03/16/2020. FINDINGS: The lungs are clear. There are no pleural effusions. Cardiac silhouette is prominent but magnified on this AP technique. There is no pneumothorax suspected. The bones and soft tissues are unremarkable. There is no significant interval change. IMPRESSION: No acute cardiopulmonary findings. Reviewed, dictated and finalized at location A.
--- NOTE | ~2020-03-20 | CT_ITS ---
EXAMINATION: CT brain wo con EXAM DATE: 03/20/2020 20:40 INDICATION: 20 minute seizure today. History of seizures. TECHNIQUE: Spiral CT of the head was performed without contrast. Axial, coronal and sagittal images were reviewed. The dose-length product (DLP) for this examination was 681.00 mGy-cm. The exposure w as tailored according to patient size, and iterative reconstruction (ASIR) was used as additional dos e reduction technique. Comparison is made to prior examination from 03/16/2020. FINDINGS: There is no acute intraparenchymal hemorrhage. No evidence of intraparenchymal brain mass lesion. No evidence of acute infarction. Please note that initial head CT has limited sensitivity f or small or acute infarctions. Old moderate-sized infarction in the left frontotemporal region and b nereyda ganglia. Small old right hemispheric infarctions. There is mild to moderate periventricular and subcortical hypodensity, nonspecific but probably related to small vessel ischemic disease. There i s moderate prominence of the sulci and ventricles related to cerebral atrophy. There is intracrania l carotid arteriosclerosis. There are no extra-axial collections. There is no mass effect or midlin e shift. The orbits are unremarkable. Soft tissue is unremarkable. Moderate-sized right maxillary sinus retention cyst. IMPRESSION: 1. No acute intracranial findings. 2. Old bilateral cerebral infarctions, largest in the left frontotemporal/basal ganglia region. 3. Atrophy and microangiopathy. Reviewed, dictated and finalized at location A. IMPRESSION: 1. No acute intracranial findings. 2. Old bilateral cerebral infarctions, largest in the left frontotemporal/basa l ganglia region. 3. Atrophy and microangiopathy.
--- NOTE | 2020-03-20 19:28 | ED.GENADULT ---
HPI - General Adult General Chief complaint: Seizure Stated complaint: seizure Source: EMS Mode of arrival: EMS Limitations: no limitations History of Present Illness HPI narrative: Patient is a 64-year-old male brought in from [facility] for evaluation of seizure. Staff apparently called EMS after patient had had a generalized tonic-clonic seizure for approximately 20 minutes. IV access was obtained by EMS and patient was given 5 of IV Valium with improvement in the tonic-clonic activity. Patient arrives somnolent, minimal gag reflex, unable to provide history. He does have some convulsions of his left upper and lower extremity and right gaze deviation. Apparently, patient was recently admitted to this facility. Additional history unable to be obtained, all history provided by EMS. Related Data Home Medications Medication Instructions Recorded Confirmed amlodipine 5 mg tablet 10 mg PO HS 09/01/19 11/13/19 baclofen 10 mg tablet 10 mg PO DAILY 09/01/19 03/20/20 gabapentin 300 mg capsule 300 mg PO DAILY 09/01/19 11/13/19 lisinopril 40 mg PO DAILY 09/01/19 11/13/19 sertraline 100 mg tablet 100 mg PO HS 09/01/19 11/13/19 tamsulosin 0.4 mg capsule 0.4 mg PO HS 09/01/19 11/13/19 triamterene 37.5 1 tablet PO QAM 09/01/19 11/13/19 mg-hydrochlorothiazide 25 mg tablet Aloe [place] Antifungal (micon) 1 applic TOPICAL BID 11/13/19 11/13/19 allopurinol 300 mg PO DAILY 11/13/19 11/13/19 haloperidol 2.5 mg PO Q6-8H PRN 11/13/19 11/13/19 haloperidol lactate [Haldol] 2.5 mg IM Q6-8H PRN 11/13/19 11/13/19 nicotine [Nicoderm CQ] 1 patch TRANSDERMAL HS 11/13/19 11/13/19 budesonide [Pulmicort] 11/28/19 ipratropium-albuterol ml INHALATION 11/28/19 Lactobacillus acidoph-L.bulgar 1 tablet PO TIDWM 03/20/20 03/20/20 aspirin [Aspir-81] 81 mg PO DAILY 03/20/20 03/20/20 divalproex 250 mg PO TID 03/20/20 03/20/20 tamsulosin [Flomax] 0.4 mg PO HS 03/20/20 03/20/20 Allergies Allergy/AdvReac Type Severity Reaction Status Date / Time No Known Allergies Allergy Verified 03/20/20 19:54 Review of Systems Review of Systems: ROS unobtainable: Yes unobtainable due to mental status PMFSH Past Medical History Medical History BPH (benign prostatic hyperplasia) Chronic venous stasis dermatitis Depression Dysarthria Essential hypertension Hemiparesis of right dominant side as late effect of cerebral infarction Left MCA stroke in 1999 Peripheral neuropathy Peripheral vascular disease Subdural hematoma February 2018 Surgical History Surgical History Femoral artery stenosis, right Status post right from femoral stent Family History Family History Other Unknown family medical history Social History Social History Social History: The patient is and lives at [facility]. He has smoked a pack per day for 45 years. Questionable history of alcohol use noted in chart. Code status: Do not resuscitate paperwork accompanies him from detention from 10/24/19; his son Frank is his durable power of mergers and acquisitions attorney. Primary care physician: Dr. 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
[2020-03-20 19:29] VITALS: BP 141/77; PULSE 125; RESP 26; O2SAT 95
--- NOTE | 2020-03-20 19:31 | ECG_ITS ---
Measurements Intervals [place] Rate: 73 P: 31 [place]: 177 QRS: -13 QRSD: 98 T: 33 QT: 413 QTc: 456 Interpretive Statements SINUS RHYTHM NORMAL ECG Electronically Signed On 03-21-2020 6:48:00 CDT by Laureano Espinosa D.O.
[2020-03-20] MEDS: SODIUM CHLORIDE 0.9% IV 1,000 ML 999 ML IV CONT (19:46)
[2020-03-20] MEDS: LORAZEPAM INJ 2 MG/ML VIAL 1 MG IV PUSH (19:46)
[2020-03-20 19:51] VITALS: PULSE 116
[2020-03-20 19:52] VITALS: BP 152/57; PULSE 113; RESP 24; O2SAT 91
[2020-03-20 20:00] LABS: Basophils Percent Auto 0.2 % (0.2-1.2); Eosinophils Absolute Auto 0.1 K/mm3 (0-0.3); Eosinophils Percent Auto 0.9 % (0-4.4); Hematocrit 42.3 % (42.0-52.0); Hemoglobin 13.8 g/dL (14.0-18.0); Immature Granulocyte Absolute 0.02 K/mm3 (0.00-0.031); Immature Granulocyte Percent A 0.2 % (0-0.5); Lymphocytes Absolute Auto 1.38 K/mm3 (0.9-3.2); Lymphocytes Percent Auto 14.1 % (18.3-44.2); Mean Corpuscular HGB Conc 32.6 g/dl (32-36); Mean Corpuscular Hemoglobin 29.4 pg (26-34); Mean Platelet Volume 11.2 fl (7.4-10.4); Monocytes Absolute Auto 0.7 K/mm3 (0.1-0.6); Monocytes Percent Auto 7.2 % (2.6-8.5); Neutrophils Absolute Auto 7.6 K/mm3 (1.3-6.7); Neutrophils Percent Auto 77.4 % (45.5-73.1); Platelet Count Result 159 k/mm3 (150-375); Red Cell Distribution Width 15.1 % (11.5-14.5); White Blood Count 9.8 K/mm3 (4.5-10.0)
[2020-03-20 20:10] LABS: INR 1.2; Partial Thromboplastin Time 25.5 SECONDS (22.3-36.8); Prothrombin Time 15.1 Seconds (11.1-14.7)
[2020-03-20 20:13] LABS: Albumin Level 3.4 g/dL (3.5-5.1); Alkaline Phosphatase 71 U/L (38-126); Aspartate Amino Transferase 28 U/L (17-59); Blood Urea Nitrogen 12 mg/dL (9-20); Calcium 8.9 mg/dL (8.4-10.2); Carbon Dioxide 23 mmol/L (22-30); Chloride 106 mmol/L (98-107); Estimated Glomerular Filt Rate > 60; Glucose 150 mg/dL (75-110); Potassium 3.3 mmol/L (3.4-5.0); Sodium 140 mmol/L (137-145)
[2020-03-20 20:24] LABS: Troponin I 0.032 ng/mL (0.000-0.034)
[2020-03-20 20:24] LABS: Add Urine Microscopic? YES; Appearance Urine Turbid (Clear); Bacteria Urine 4+ /hpf; Bilirubin Urine Negative (Negative); Blood Urine 1+ (Negative); Color Urine Yellow (Yellow); Glucose Urine UA Negative (Negative); Ketones Urine Trace mg/dL (Negative); Leukocyte Esterase Ur 3+ LEU/UL (Negative); Mucus Urine Rare /lpf; Nitrate Urine Positive (Negative); Protein Urine 2+ mg/dL (Negative); RBC Urine 21-50 /hpf (0-2); Specific Grav Ur 1.017 (1.001-1.035); Urobilinogen Urine Negative mg/dL (<2.0); WBC Urine >75 /hpf
[2020-03-20 20:34] LABS: Alanine Aminotransferase 20 U/L (4-50)
[2020-03-20 20:37] LABS: CRP 0.9 mg/dL (<1.0)
[2020-03-20 21:00] VITALS: BP 166/65; PULSE 65; RESP 20; O2SAT 99
[2020-03-20] MEDS: SODIUM CHLORIDE 0.9% IV 2,500 ML/1,000 ML BAG 999 ML IV CONT (21:41)
--- NOTE | 2020-03-20 21:50 | PC.NURSE ---
Tried calling patients son multiple times with no answer. A message was left at this time.
[2020-03-20 22:01] VITALS: BP 179/73; PULSE 64; RESP 20; O2SAT 100
[2020-03-20] MEDS: levETIRAcetam 1000MG/NACL100ML 1,000 MG/100 ML BAG 400 MG IVPB (22:30)
[2020-03-20 22:58] LABS: Reflex Lactic Acid Yes or No Add Lactic
[2020-03-20 23:03] VITALS: BP 199/98; PULSE 75; RESP 98; O2SAT 22
--- NOTE | 2020-03-20 23:30 | ADMIMU ---
This patient, Ricardo Covington, was admitted to IMU status, and placed in Intensive Care Unit-3. Patient/family oriented to hospital policies and general routines including ID bracelet, bed and alarms, visiting hours, pain management, procedures, bathroom and other care routines, personal items, smoking policy, room service/diet, and visiting hours. Valuables list has been completed. Information on how to activate the Rapid Response Team has been discussed. Patient/Family are encouraged to report perceived risks to care and to ask questions if they do not understand what they are told or what they should do.
--- NOTE | 2020-03-20 23:50 | PM.IMHP ---
H&P: HPI History of Present Illness Chief complaint: Severe sepsis, seizure Narrative: This is a 64 year old male with known aphasia and right sided hemiparesis secondary to CVA who was sent from [facility] secondary to an acute prolonged tonic-clonic seizure of about 20 minutes. The patient was treated with Valium 5 mg IV as well as ativan IV in the ER. The patient has been receiving comfort focused care at the skilled nursing. He was evaluated in the ER and CT brain was unremarkable for any acute pathology. Neurology was consulted and the patient was loaded with IV keppra. He was also found to be septic in the ER tonight w/ tachycardia, tachypnea, and an elevated lactic acid of 6. The patient is postictal at the present moment and poorly responsive. No history is obtainable from the patient. Review of Systems Review of Systems: ROS unobtainable: Yes unobtainable due to medical condition and unobtainable due to mental status PMFSH Past Medical History Medical History (Updated 03/21/20 @ 00:25 by Mark Piedra MD) BPH (benign prostatic hyperplasia) Chronic venous stasis dermatitis Depression Dysarthria Essential hypertension Hemiparesis of right dominant side as late effect of cerebral infarction Left MCA stroke in 1999 Peripheral neuropathy Peripheral vascular disease Subdural hematoma February 2018 Surgical History Surgical History Femoral artery stenosis, right Status post right from femoral stent Family History Family History Other Unknown family medical history Social History Social History Social History: The patient is and lives at [facility]. He has smoked a pack per day for 45 years. Questionable history of alcohol use noted in chart. Code status: Do not resuscitate paperwork accompanies him from skilled nursing from 10/24/19; his son Frank is his durable power of patent attorney. Primary care physician: Dr. 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 Gender identity (if verbalized by the patient): Male Spiritual care concerns: No Agree to blood products: Yes Meds Home Medications and Allergies Home Medications Medication Instructions Recorded Confirmed Type baclofen 10 mg tablet 10 mg PO DAILY 09/01/19 03/20/20 History gabapentin 300 mg capsule 100 mg PO HS 09/01/19 03/20/20 History lisinopril 20 mg PO DAILY 09/01/19 03/20/20 History sertraline 100 mg tablet 50 mg PO HS 09/01/19 03/21/20 History ciprofloxacin HCl [Cipro] 500 mg PO Q12H #20 tablet 03/17/20 03/20/20 Rx Lactobacillus acidoph-L.bulgar 1 tablet PO TIDWM 03/20/20 03/20/20 History acetaminophen 325 mg PO Q4-5H PRN 03/20/20 03/21/20 History aspirin [Aspir-81] 81 mg PO DAILY 03/20/20 03/20/20 History atorvastatin [Lipitor] 10 mg PO HS 03/20/20 03/20/20 History divalproex 250 mg PO TID 03/20/20 03/20/20 History hydroxyzine HCl 25 mg PO TID PRN 03/20/20 03/20/20 History olanzapine 5 mg PO BID 03/20/20 03/20/20 History tamsulosin [Flomax] 0.4 mg PO HS 03/20/20 03/20/20 History ondansetron HCl [Zofran] 4 mg PO Q6H PRN 03/21/20 03/21/20 History Allergies Allergy/AdvReac Type Severity Reaction Status Date / Time No Known Allergies Allergy Verified 03/20/20 19:54 Vital Signs Vital Signs - 24 hr 03/20/20 19:29 03/20/20 19:51 03/20/20 19:52 Pulse Rate 125 H 116 H 113 H Respiratory Rate 26 H 24 H Blood Pressure 141/77 H 152
[2020-03-20 23:52] VITALS: BMI 24.6
[2020-03-21] VITALS (14 sets, daily range): BP systolic 169–211; BP diastolic 61–115; PULSE 49–102; RESP 8–20; TEMP 36.1–37.1; O2SAT 8–99; BMI 24.6
[2020-03-21 00:34] LABS: Amphetamine Screen Urine Negative (Negative); Barbiturate Screen Urine Negative (Negative); Benzodiazepines Screen Urine Negative (Negative); Cannabinoid Screen Urine Negative (Negative); Cocaine Screen Urine Negative (Negative); Methadone Screen Urine Negative (Negative); Opiate Screen Urine Negative (Negative); Phencyclidine Screen Urine Negative (Negative)
[2020-03-21 00:37] LABS: Lactic Acid 1.8 mmol/L (0.7-2.1)
[2020-03-21] MEDS: KCL 20 MEQ/SW 100 ML 100 ML 50 MEQ IVPB (01:30)
[2020-03-21 05:19] LABS: Basophils Percent Auto 0.2 % (0.2-1.2); Eosinophils Percent Auto 0.1 % (0-4.4); Hematocrit 38.4 % (42.0-52.0); Hemoglobin 12.3 g/dL (14.0-18.0); Immature Granulocyte Absolute 0.03 K/mm3 (0.00-0.031); Immature Granulocyte Percent A 0.4 % (0-0.5); Immature Platelet Fraction Pct 4.9 % (0.9-11.2); Lymphocytes Absolute Auto 1.72 K/mm3 (0.9-3.2); Lymphocytes Percent Auto 20.2 % (18.3-44.2); Mean Corpuscular Hemoglobin 29.4 pg (26-34); Mean Corpuscular Volume 91.6 fl (80-100); Mean Platelet Volume 11.3 fl (7.4-10.4); Monocytes Percent Auto 12.1 % (2.6-8.5); Neutrophils Absolute Auto 5.7 K/mm3 (1.3-6.7); Platelet Count Result 128 k/mm3 (150-375); Red Blood Count 4.19 M/mm3 (4.6-6.20); Red Cell Distribution Width 15.4 % (11.5-14.5); White Blood Count 8.5 K/mm3 (4.5-10.0)
[2020-03-21 05:20] LABS: Blood Urea Nitrogen 10 mg/dL (9-20); Calcium 7.9 mg/dL (8.4-10.2); Carbon Dioxide 27 mmol/L (22-30); Chloride 109 mmol/L (98-107); Estimated CRCL calculation 102 ml/min; Estimated Glomerular Filt Rate > 60; Glucose 95 mg/dL (75-110); Magnesium 1.6 mg/dL (1.6-2.3); Potassium 3.6 mmol/L (3.4-5.0); Sodium 139 mmol/L (137-145)
--- NOTE | 2020-03-21 06:08 | ECG_ITS ---
Measurements Intervals [place] Rate: 122 P: MA: 0 QRS: -15 QRSD: 84 T: 28 QT: 321 QTc: 458 Interpretive Statements ATRIAL FIBRILLATION WITH RAPID VENTRICULAR RESPONSE VENTRICULAR PREMATURE COMPLEX BORDERLINE T WAVE ABNORMALITY- HIGH LATERAL LEADS ABNORMAL ECG Electronically Signed On 03-21-2020 6:56:54 CDT by Laureano Espinosa D.O.
--- NOTE | 2020-03-21 07:00 | PC.NURSE ---
pt a fib rvr givn cardiazem 15 mg iv
[2020-03-21] MEDS: levETIRAcetam 1000MG/NACL100ML 1,000 MG/100 ML BAG 400 MG IVPB ×2 (08:36→20:10)
--- NOTE | 2020-03-21 10:09 | PM.IMPN ---
Progress Note: A&P Assessment and Plan (1) Acute encephalopathy: Code(s): G93.40 - Encephalopathy, unspecified Status: Acute Assessment and Plan: Secondary to acute seizure. Consider also related to UTI. Patient's mental status slowly improving. Continue to monitor. (2) Seizure: Code(s): R56.9 - Unspecified convulsions Status: Acute Assessment and Plan: New onset seizures. CT brain showing no acute findings. Continue seizure precautions. Aspiration precautions. Continue IV Keppra. PRN IV ativan available for acute seizures. Change to oral Keppra when able. (3) Abnormal urinalysis: Code(s): R82.90 - Unspecified abnormal findings in urine Status: Acute Assessment and Plan: UA noted. Possibly UTI. UCx pending. Continue IV antibiotics. Follow up on urine culture. (4) Severe sepsis: Code(s): A41.9 - Sepsis, unspecified organism; R65.20 - Severe sepsis without septic shock Status: Acute Assessment and Plan: Possible sepsis w/ tachycardia, tachypnea and elevated lactic acid. The patient has been started on broad spectrum IV antibiotics. Will continue for now but need to discuss with son about plans for further treatment. (5) Elevated lactic acid level: Code(s): R79.89 - Other specified abnormal findings of blood chemistry Status: Acute Assessment and Plan: Lactic acid 6 felt secondary to acute seizure. Repeat lactic acid was 1.8. Monitor closely for recurrent sz. (6) Hypokalemia: Code(s): E87.6 - Hypokalemia Status: Acute Assessment and Plan: Mild hypokalemia on admission to 3.3. Potassium replaced and potassium better this morning. Patient may be going to hospice so will not recheck labs tomorrow. (7) Essential hypertension: Code(s): I10 - Essential (primary) hypertension Status: Chronic Assessment and Plan: BP reviewed on 03/21/20. BP elevated today. Oral home meds on hold since patient still obtunded. Continue PRN IV hydralazine. (8) Aphasia: Code(s): R47.01 - Aphasia Status: Chronic Assessment and Plan: Related to old CVA. As above. (9) Hemiparesis of right dominant side as late effect of cerebral infarction: Code(s): I69.351 - Hemiplegia and hemiparesis following cerebral infarction affecting right dominant side Status: Chronic Assessment and Plan: Patient with chronic right sided spastic hemiplegia. Continue with appropriate turning in bed and pressure reduction. (10) Suspected COVID-19 virus infection: Code(s): Z20.828 - Contact with and (suspected) exposure to other viral communicable diseases Status: Acute Assessment and Plan: The patient was swabbed for COVID-19 virus since he came from [facility]. COVID-19 results negative. Okay to stop isolation. Subjective Date/time seen: 03/21/20 10:09 Interval history: 64yo male with vascular dementia and hx of CVA with right hemiplegia here for seizure. Assuming care. Chart reviewed. Patient arouses and can speak a few words at times but overall does not respond much when asked questions. As such, hx obtained from staff and resource paraprofessional. Patient developed AFib after admission treated with diltiazem. Patient converted to NSR. No answer at sons phone number listed. A hospice organization called stating they are supposed to meet the son and patient at the facility to sign the patinet up for hospice but this has not been verified. Exam Narrative: Exam Narrative: AF 179/61 49 8 98% ra Gen - NARD lying semi-recumbent in bed HEENT - NC/AT, PEERL Neck - supple, no meningismus Chest -lungs are clear anteriorly and in the flanks. CV -bradycardic but regular. Telemetry showing episodes of atrial fibrillation and nonsustained V-tach but current rhythm is bradycardia with a rate of 48 Abd -soft. Nondistended. No apparent
[2020-03-21] MEDS: hydrALAZINE HCL 20 MG/ML VIAL 10 MG IV PUSH ×2 (12:11→20:08)
[2020-03-21 12:59] LABS: SARS-CoV-2 RNA PCR Negative
--- NOTE | 2020-03-21 13:12 | PC.NURSE ---
Dr. Branham notified that Covid-19 results were negative.
--- NOTE | 2020-03-21 15:30 | PC.NURSE ---
Pt transferred to [facility] via bed. No belonging noted on list or in room. No issues with transport. Report given to Kelly Ca RN @ [phone]
--- NOTE | 2020-03-21 15:44 | CONS_ITS ---
DATE OF CONSULTATION: 03/20/2020 HISTORY OF PRESENT ILLNESS: A 64-year-old has been admitted to [facility] with the diagnosis of seizure disorder with severe sepsis. The patient carries the diagnosis of right hemiparesis and aphasia secondary to cerebrovascular accident. He was referred here from [facility] for the acute prolonged tonic-clonic seizure for about 20 minutes duration, was treated with Valium intravenously in the emergency room. The patient has been seen only comfort focused [facility]. In the ER, his CT scan was negative for any acute process. He was loaded with the IV Keppra on personal consultation. He was also found to be septic in the ER with tachycardia, tachypnea and elevated lactic acid of 6 and also was subsequently in postictal state. PAST MEDICAL HISTORY: He carries the multiple diagnoses in the past such as benign prostatic hypertrophy, chronic venous stasis with dermatitis, depression, dysarthria, hypertension, hemiparesis of right dominant side as a late effect to cerebral infarction, peripheral neuropathy, and peripheral vascular disease. History of subdural hematoma in February of 2018. He has undergone femoral artery stenosis in the right side. At present, he is not a smoker though he has history of smoking pack years 45 and currently he is everyday smoker as well. MEDICATIONS: At the time of admission to the hospital, he was taking multiple medications as outlined particularly: 1. Baclofen 10 mg daily. 2. Gabapentin 300 mg daily. 3. Lisinopril 40 mg daily. 4. Sertraline 100 h.s. 5. Cipro 500 q.12 hours. 6. Acetaminophen on p.r.n. basis. 7. Aspirin 81 mg daily. 8. Atorvastatin 10 mg h.s. 9. Divalproex 250 t.i.d. 10. Hydroxyzine 25 t.i.d. 11. Olanzapine 5 mg b.i.d. 12. Tamsulosin 0.4 mg h.s. 13. Zofran 4 mg q.6 hours p.r.n. ALLERGIES: HE IS NOT ALLERGIC TO ANY MEDICATION. PHYSICAL EXAMINATION: VITAL SIGNS: On evaluation, his pulse was rapid 125, respiration 26, blood pressure 141/77, pulse ox 95%. HEENT: Head normocephalic with no cranial bruit. Ear, nose, throat examination normal. NECK: Supple with no cervical bruit. No meningeal signs. No thyromegaly. No lymphadenopathy. HEART: Regular with no murmur. LUNGS: Clear to auscultation. Occasional rhonchi. ABDOMEN: Soft with no organomegaly. NEUROLOGICAL: He is postictal and face symmetrical. Tongue midline. Motor examination revealed him to have symmetrical strength. Reflexes are symmetrical. Plantars are downgoing. There is no evidence of gross cerebellar deficit, though the exam was rather limited. LABORATORY DATA: Initial CBC revealed no leukocytosis. WBC 9.8, hemoglobin 13.8, platelet count 158. Basic metabolic panel normal except potassium 3.3. Troponin 0.32. Hepatic enzymes normal. UA 2+ glucose, 2+ protein and initial CT scan was negative for the bleed, except the old bilateral cerebellar infarction, largest in the left frontotemporal and basal ganglia region along with the atrophy and microangiopathy. At this stage, the patient is receiving Keppra 1000 mg q.12 hours along with the vancomycin for the infection and also piperacillin, tazobactam and also p.r.n. medication. Treatment will be continued as such. KYLE ROSA M.D. HONEY PRODUCER HONEY PRODUCER D I MT: Reyna
[2020-03-21] MEDS: LORAZEPAM INJ 2 MG/ML VIAL IV PUSH (20:08)
[2020-03-22] VITALS (12 sets, daily range): BP systolic 149–183; BP diastolic 76–130; PULSE 67–130; RESP 16–20; TEMP 36–36.8; O2SAT 93–100
[2020-03-22 06:28] LABS: Estimated CRCL calculation 118 ml/min; Estimated Glomerular Filt Rate > 60
[2020-03-22 06:48] LABS: Vancomycin Trough 7.1 ug/mL (10.0-20.0)
[2020-03-22] MEDS: levETIRAcetam 1000MG/NACL100ML 1,000 MG/100 ML BAG 400 MG IVPB (09:36)
--- NOTE | 2020-03-22 14:19 | PM.DS ---
DS: Admitting Diagnosis Admitting Diagnosis Admitting Diagnosis: Encephalopathy, unspecified DS: Discharge Diagnosis Discharge Diagnosis (1) Acute encephalopathy: Code(s): G93.40 - Encephalopathy, unspecified Status: Acute Assessment and Plan: Secondary to acute seizure. Consider also related to UTI. Patient's mental status slowly improved during his hospital coarse. Patient was on comfort measures prior to admission. Son did not want to pursue aggressive treatment. Options discussed and hospice was decided. Patient discharged back to care home on hospice. Continue current medical treatment until hospice arranged. (2) Seizure: Code(s): R56.9 - Unspecified convulsions Status: Acute Assessment and Plan: New onset seizures. CT brain showing no acute findings. We started seizure and aspiration precautions. He was started on IV Keppra. PRN IV ativan available for acute seizures. Changed to oral Keppra at discharge. (3) Abnormal urinalysis: Code(s): R82.90 - Unspecified abnormal findings in urine Status: Acute Assessment and Plan: UA noted. UCx growing 100K of ESBL EColi. Treated with IV antibiotics. (4) Severe sepsis: Code(s): A41.9 - Sepsis, unspecified organism; R65.20 - Severe sepsis without septic shock Status: Acute Assessment and Plan: Possible sepsis w/ tachycardia, tachypnea and elevated lactic acid vs related to the seizure. The patient was started on broad spectrum IV antibiotics. (5) Elevated lactic acid level: Code(s): R79.89 - Other specified abnormal findings of blood chemistry Status: Acute Assessment and Plan: Lactic acid 6 felt secondary to acute seizure. Repeat lactic acid was 1.8. (6) Hypokalemia: Code(s): E87.6 - Hypokalemia Status: Acute Assessment and Plan: Mild hypokalemia on admission to 3.3. Potassium replaced and potassium improved. (7) Essential hypertension: Code(s): I10 - Essential (primary) hypertension Status: Chronic Assessment and Plan: BP monitored closely. BP elevated at times. Oral home meds resumed when able. Continue PRN IV hydralazine. (8) Aphasia: Code(s): R47.01 - Aphasia Status: Chronic Assessment and Plan: Related to old CVA. As above. (9) Hemiparesis of right dominant side as late effect of cerebral infarction: Code(s): I69.351 - Hemiplegia and hemiparesis following cerebral infarction affecting right dominant side Status: Chronic Assessment and Plan: Patient with chronic right sided spastic hemiplegia. Continue with appropriate turning in bed and pressure reduction. (10) Suspected COVID-19 virus infection: Code(s): Z20.828 - Contact with and (suspected) exposure to other viral communicable diseases Status: Acute Assessment and Plan: The patient was swabbed for COVID-19 virus since he came from [facility]. COVID-19 results negative so isolation stopped. DS: Summary Hospital Course Reason for hospitalization: 64yo male here for seizure. Please see H&P for details. Hospital Course: As above. Time Spent with Patient Time attestation: Total time spent providing and/or coordinating discharge services: 32 minutes Time spent: Greater than 30 minutes Exam Narrative: Exam Narrative: AF 182/85 71 Gen - NARD Chest - clear anteriorly CV - RRR Abd -soft. No apparent tenderness. Positive bowel sounds -Brambila catheter secured draining clear yellow urine. Ext - No pedal edema Neuro -right spastic hemiplegia. respnds to voice, nonverbal but was speaking to nursing earlier today Skin - Warm and dry DS: Data Data Completed and Pending Labs on day of discharge: Labs from last 24 hours 03/22/20 03/22/20 05:54 05:54 Creatinine 0.60 L Estim Creat Clear Calc 118 Estimated GFR > 60 Vancomycin Trou
== END 2020-03-23 00:10 | disposition hospice, home (50) ==
LOC: ANHED 22:10 → ANHICU 22:29 → ANHIMU 03-21 15:52
PROVIDERS: Admitting Provider Family Medicine; Emergency Provider Emergency Medicine; PCP Family Medicine; Visit Provider Internal Medicine
DX: A41.9 Sepsis, unspecified organism (principal); R65.20 Severe sepsis without septic shock; N39.0 Urinary tract infection, site not specified; B96.20 Unspecified Escherichia coli [E. coli] as the cause of diseases classified elsewhere; R56.9 Unspecified convulsions; G93.40 Encephalopathy, unspecified; R79.89 Other specified abnormal findings of blood chemistry; E87.6 Hypokalemia; I10 Essential (primary) hypertension; I69.320 Aphasia following cerebral infarction; I69.351 Hemiplegia and hemiparesis following cerebral infarction affecting right dominant side; F01.50 Vascular dementia, unspecified severity, without behavioral disturbance, psychotic disturbance, mood disturbance, and anxiety; N40.0 Benign prostatic hyperplasia without lower urinary tract symptoms; I73.9 Peripheral vascular disease, unspecified; G62.9 Polyneuropathy, unspecified; F32.9 Major depressive disorder, single episode, unspecified; Z20.828 Contact with and (suspected) exposure to other viral communicable diseases; Z66 Do not resuscitate; Z79.82 Long term (current) use of aspirin; Z79.899 Other long term (current) drug therapy; Z87.891 Personal history of nicotine dependence
CPT/HCPCS: 36415; 70450; 71045; 80048; 80053; 80202; 80307; 81001; 82565; 83605; 83735; 84484; 85025; 85055; 85610; 85730; 86140; 87040; 87077; 87086; 87088; 87186; 87635; 93005; 96361; 96365; 96366; 96367; 96375; 96376; 99285; C9803; G0378; J0131; J0360; J1953; J2060; J2543; J3370; J3480; J7030; U0003